=== PATIENT | male | born 1970 | race Caucasian/White ===

== ENCOUNTER 2019-04-04 08:45 | Emergency (ER) | payer MEDICARE, MEDICAID ==
[~2019-04-04] VITALS: Ht 190.5 cm; Wt 87.0 kg
[2019-04-04 08:53] VITALS: BP 137/80
== END 2019-04-04 09:23 | disposition home or self-care (01) ==
LOC: ED 09:11
DX: R06.2 Wheezing (principal); Z76.0 Encounter for issue of repeat prescription; F17.200 Nicotine dependence, unspecified, uncomplicated
CPT/HCPCS: 99283